=== PATIENT | female | born 1965 | race Caucasian/White ===

== ENCOUNTER 2021-03-01 16:10 | Inpatient (IN) | payer SELFPAY ==
[~2021-03-01] VITALS: Ht 162.6 cm; Wt 63.3 kg
[~2021-03-01 16:10] MED LIST: AMLODIPINE10 MG PO; LISINOPRIL HCTZ1 TA1 PO; SYNTHROID0.025 MG; VICODIN 5/500 505 MG PO
[2021-03-01 16:19] VITALS: BP 146/88
[2021-03-01 17:17] LABS: HEMATOCRIT 37.4 % (37.0-47.0); MEAN CELL VOLUME 101.6 fl (81.0-99.0); MEAN CORPUSCULAR HGB 33.4 pg (27.0-31.0); MEAN CORPUSCULAR HGB CONC 32.9 g/dl (33.0-37.0); MEAN PLATELET VOLUME 8.6 fl (9.6-12.3); PLATELET COUNT AUTOMATED 203 10*3/uL (130-400); RED BLOOD COUNT 3.68 10*6/uL (4.10-5.10); RED CELL DISTRI WIDTH 13.7 % (0-14.5); WHITE BLOOD COUNT 4.6 10*3/uL (4.8-10.8)
[2021-03-01 17:40] LABS: ALBUMIN 3.4 gm/dl (3.1-4.5); ALKALINE PHOSPHATASE 359 U/L (45-117); BUN 24 mg/dl (7-24); CHLORIDE 103 mmol/L (98-107); CREATININE 1.11 mg/dL (0.55-1.02); POTASSIUM 3.6 mmol/L (3.5-5.1); SGOT/AST 183 IU/L (3-35); SGPT/ALT 143 U/L (12-78); SODIUM 136 mmol/L (136-145); TOTAL PROTEIN 7.7 gm/dL (6.4-8.2)
[2021-03-01 17:41] LABS: BASOPHILS 1 % (0-1); PLATELET SUFFICIENCY NORMAL (NORMAL); TOTAL CELLS COUNTED 100 #CELLS
[2021-03-01 20:00] VITALS: BP 144/70
[2021-03-01 21:04] VITALS: BP 138/74
[2021-03-02 01:38] VITALS: BP 146/81
[2021-03-02 05:15] VITALS: BP 138/65
[2021-03-02 05:55] LABS: ALBUMIN 2.9 gm/dl (3.1-4.5); BUN 18 mg/dl (7-24); CHLORIDE 107 mmol/L (98-107); CHOLESTEROL 113 mg/dL (<200); CREATININE 0.73 mg/dL (0.55-1.02); POTASSIUM 3.4 mmol/L (3.5-5.1); SGOT/AST 166 IU/L (3-35); SGPT/ALT 153 U/L (12-78); SODIUM 140 mmol/L (136-145); TOTAL PROTEIN 6.5 gm/dL (6.4-8.2); TRIGLYCERIDES 144 mg/dl (<150)
[2021-03-02 06:02] LABS: ALKALINE PHOSPHATASE 384 U/L (45-117); FREE T4 1.05 ng/dl (0.76-1.46); LDL CHOLESTEROL 54 mg/dL (9-159)
[2021-03-02 06:09] VITALS: BP 149/79
[2021-03-02 06:23] LABS: HEMATOCRIT 35.4 % (37.0-47.0); MEAN CELL VOLUME 103.2 fl (81.0-99.0); MEAN CORPUSCULAR HGB 32.9 pg (27.0-31.0); MEAN CORPUSCULAR HGB CONC 31.9 g/dl (33.0-37.0); MEAN PLATELET VOLUME 9.2 fl (9.6-12.3); PLATELET COUNT AUTOMATED 183 10*3/uL (130-400); RED BLOOD COUNT 3.43 10*6/uL (4.10-5.10); RED CELL DISTRI WIDTH 13.8 % (0-14.5); WHITE BLOOD COUNT 3.8 10*3/uL (4.8-10.8)
[2021-03-02 07:18] LABS: BASOPHILS 1 % (0-1); PLATELET SUFFICIENCY NORMAL (NORMAL); SCHISTOCYTES FEW; TOTAL CELLS COUNTED 100 #CELLS
[2021-03-02 07:52] LABS: BILIRUBIN Negative (Negative); BLOOD 3+ (Negative); CLARITY Clear (Clear); COLOR Dark Yellow (Yellow); GLUCOSE Negative (Negative); KETONE 1+ (Negative); LEUKO ESTERASE Trace (Negative); NITRITE Positive (Negative); PH 6.5 (4.5-8.0); SPECIFIC GRAVITY 1.025 (1.001-1.030)
[2021-03-02 08:12] VITALS: BP 148/72
[2021-03-02 08:23] LABS: VITAMIN D, 25-HYDROXY 46.1 ng/mL (30-100)
[2021-03-02 08:25] LABS: RBC TNTC rbc/hpf (0-2)
[2021-03-02 08:26] LABS: BACTERIA 1+
[2021-03-02] MEDS ORDERED: ZOLPIDEM TART5 MG PO (09:00)
[2021-03-02] MEDS ORDERED: AMLODIPINE-BEN1 EAC3 PO (09:02)
[2021-03-02] MEDS ORDERED: 24 HOUR ALLER15.8 ML NAS (09:02)
[2021-03-02] MEDS ORDERED: LEVOTHYROXINE137 MCG PO (09:03)
[2021-03-02 15:59] VITALS: BP 129/85
[2021-03-03] VITALS (7 sets, daily range): BP systolic 111–142; BP diastolic 59–82
[2021-03-03 05:32] LABS: ALBUMIN 2.4 gm/dl (3.1-4.5); ALKALINE PHOSPHATASE 382 U/L (45-117); CHLORIDE 111 mmol/L (98-107); CREATININE 0.55 mg/dL (0.55-1.02); POTASSIUM 3.7 mmol/L (3.5-5.1); SGOT/AST 76 IU/L (3-35); SGPT/ALT 117 U/L (12-78); SODIUM 140 mmol/L (136-145); TOTAL PROTEIN 6.2 gm/dL (6.4-8.2)
[2021-03-03 05:56] LABS: BUN 8 mg/dl (7-24)
[2021-03-03 06:18] LABS: HEMATOCRIT 32.8 % (37.0-47.0); MEAN CELL VOLUME 104.5 fl (81.0-99.0); MEAN CORPUSCULAR HGB 32.8 pg (27.0-31.0); MEAN CORPUSCULAR HGB CONC 31.4 g/dl (33.0-37.0); MEAN PLATELET VOLUME 9.4 fl (9.6-12.3); PLATELET COUNT AUTOMATED 206 10*3/uL (130-400); RED BLOOD COUNT 3.14 10*6/uL (4.10-5.10); WHITE BLOOD COUNT 4.3 10*3/uL (4.8-10.8)
[2021-03-03 07:29] LABS: ATYPICAL LYMPHS 2 % (0-0); PLATELET SUFFICIENCY NORMAL (NORMAL); TOTAL CELLS COUNTED 100 #CELLS
[2021-03-03] MEDS ORDERED: COLACE100 MG PO (10:26)
[2021-03-03] MEDS ORDERED: HYDROCODONE-AC1 EAC1 PO (14:39)
== END 2021-03-03 15:22 | disposition home or self-care (01) | DRG 417 ==
LOC: ED 16:10 → ICCU 23:41 → EDHOLD 23:41 → ICCU 03-02 07:58 → 5E 03-02 20:52
PROVIDERS: Emergency Medicine; Hospitalist; Student in an Organized Health Care Education/Training Program; ADMIT Internal Medicine; ATTEND Internal Medicine
PROC: 0FT44ZZ Resection of Gallbladder, Percutaneous Endoscopic Approach (ICD-10-PCS; principal; 2021-03-03)
PROC: 3E0T3BZ Introduction of Anesthetic Agent into Peripheral Nerves and Plexi, Percutaneous Approach (ICD-10-PCS; 2021-03-03)
DX: K80.00 Calculus of gallbladder with acute cholecystitis without obstruction (principal); N17.0 Acute kidney failure with tubular necrosis; E44.0 Moderate protein-calorie malnutrition; N39.0 Urinary tract infection, site not specified; J01.01 Acute recurrent maxillary sinusitis; E83.41 Hypermagnesemia; E06.3 Autoimmune thyroiditis; I10 Essential (primary) hypertension; E87.6 Hypokalemia; D72.810 Lymphocytopenia; F17.210 Nicotine dependence, cigarettes, uncomplicated; E78.5 Hyperlipidemia, unspecified; D53.9 Nutritional anemia, unspecified; Z79.890 Hormone replacement therapy; Z79.899 Other long term (current) drug therapy; Z71.6 Tobacco abuse counseling; Z98.51 Tubal ligation status; Z82.49 Family history of ischemic heart disease and other diseases of the circulatory system; Z68.23 Body mass index [BMI] 23.0-23.9, adult; Z20.822 Contact with and (suspected) exposure to COVID-19

== ENCOUNTER → 2021-09-13 | Outpatient (CLI) | payer BC ==
[~2021-09-13] MED LIST changes: +24 HOUR ALLER15.8 ML NAS; +AMLODIPINE-BEN1 EAC3 PO; +COLACE100 MG PO; +HYDROCODONE-AC1 EAC1 PO; +LEVOTHYROXINE137 MCG PO; +ZOLPIDEM TART5 MG PO
== END ==
LOC: COVID19 17:38
PROVIDERS: ATTEND Internal Medicine
DX: Z11.52 Encounter for screening for COVID-19 (principal); Z20.822 Contact with and (suspected) exposure to COVID-19

== ENCOUNTER 2023-01-20 14:16 | Emergency (ER) | payer BC ==
[2023-01-20] MEDS ORDERED: DOXYCYCLINE HY100 M3 PO (17:02)
== END 2023-01-20 17:33 | disposition home or self-care (01) ==
LOC: ED 14:16
DX: L02.511 Cutaneous abscess of right hand (principal); L03.011 Cellulitis of right finger; Z79.899 Other long term (current) drug therapy; Z90.89 Acquired absence of other organs; Z98.51 Tubal ligation status; Z98.890 Other specified postprocedural states; Z87.891 Personal history of nicotine dependence